=== PATIENT | female | born 1985 | race Caucasian/White ===

== ENCOUNTER 2019-03-28 14:14 | Emergency (ER) | payer OTHER ==
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
== END 2019-03-28 16:05 | disposition home or self-care (01) ==
LOC: DL.ED 14:14
DX: S16.1XXA Strain of muscle, fascia and tendon at neck level, initial encounter (principal); S00.83XA Contusion of other part of head, initial encounter; W22.8XXA Striking against or struck by other objects, initial encounter
CPT/HCPCS: 36415; 70486; 72125; 84703; 99283-25